=== PATIENT | female | born 1965 | race Caucasian/White ===

== ENCOUNTER 2022-07-13 11:23 | Emergency (ER) | payer SELFPAY ==
[2022-07-13 11:30] VITALS: BP 147/87; PULSE 84; RESP 20; TEMP 36.7; O2SAT 98; BMI 22.0
--- NOTE | 2022-07-13 11:40 | ED_ITS ---
Discharge Plan Prescriptions Prescriptions: No Action No Known Home Medications Referrals Follow up/Referrals: Provider,Referral, MD [Primary Care Provider] - See instructions Activity Restrictions/Add. 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 Onset (ago): minute(s) (20) Location: left and upper extremity Relieving factors: none Exacerbating factors: none Associated symptoms: denies other symptoms Treatments prior to arrival: none Related Data Home Medications Medication Instructions Recorded Confirmed No Known Home Medications 07/13/22 07/13/22 Allergies Allergy/AdvReac Type Severity Reaction Status Date / Time No Known Allergies Allergy Verified 07/13/22 11:46 [facility] Disclaimer: The information contained in this section may have been updated after the patient was seen, as this information can be updated by other users. Social History Smoking Status: Never smoker alcohol intake: never current occupational status: other Travel in the last 8 weeks: None ROS Obtained: Yes All systems reviewed & no additional complaints except as documented Integumentary/Breasts Skin/Breast: Reports as per HPI Physical Exam General General appearance: alert and in no apparent distress Chest Chest inspection: Present normal inspection and symmetric chest wall rise; Absent tenderness Respiratory Respiratory exam: Present normal lung sounds bilaterally; Absent respiratory distress Cardiovascular Cardiovascular exam: Present regular rate and normal rhythm; Absent JVD Extremities Exam Extremities exam: Present normal inspection, full ROM and normal capillary refill; Absent calf tenderness Expanded Upper Extremity Exam Left: Hand exam: Present laceration Hand L/R back image: 1. Neurological Exam Neurological exam: Present alert and oriented X3 Psychiatric Psychiatric exam: Present normal affect and normal mood Skin Skin exam: Present warm, dry, intact and normal color Lymphatic Lymphatic Findings: no adenopathy Medical Decision Making Nakul Inquiry Pt receiving controlled substance: No Procedures Laceration Laceration 1: Site: thumb Side (If applicable): left Size (cm): 1.0 Description: linear Depth: simple, single layer Pre-repair: irrigated extensively Skin layer closed with: Dermabond
[2022-07-13 12:35] VITALS: BP 147/87; PULSE 84; RESP 20; TEMP 36.7; O2SAT 98
== END 2022-07-13 12:38 | disposition home or self-care (01) ==
PROVIDERS: Emergency Provider Physician Assistant
DX: S61.112A Laceration without foreign body of left thumb with damage to nail, initial encounter (principal); W26.0XXA Contact with knife, initial encounter
CPT/HCPCS: 12001; 99203; 99213; G0463